=== PATIENT | male | born 1980 | race Caucasian/White ===

== ENCOUNTER 2017-10-23 15:51 | Emergency (ER) | payer OTHER ==
[~2017-10-23] VITALS: Ht 182.9 cm; Wt 86.6 kg
[~2017-10-23 15:51] MED LIST: NORCO 5-325 TA1 EACH PO; ONDANSETRON ODT4 MG SL
[2017-10-23] MEDS ORDERED: BACTRIM DS TAB1 EACH PO (16:07)
== END 2017-10-23 16:58 | disposition home or self-care (01) ==
LOC: ED 15:51
DX: L02.31 Cutaneous abscess of buttock (principal); Z87.891 Personal history of nicotine dependence; Z79.899 Other long term (current) drug therapy
CPT/HCPCS: 96374; 99283; J0696